=== PATIENT | female | born 1975 | race African-American/Black ===

== ENCOUNTER 2022-10-19 07:26 | Emergency (ER) | payer OTHER ==
[2022-10-19] MEDS ORDERED: DROPERIDOL 5 MG/2 ML VIAL IVP STA (07:42)
[2022-10-19] MEDS ORDERED: SODIUM CHLORIDE 0.9% 1,000 ML IV STA (07:42)
--- NOTE | 2022-10-19 07:59 | ED Physician Documentation ---
History of Present Illness - Stated complaint Stated Complaint: ABD PX/VOMIT - Chief complaint Chief Complaint: Abd Pain - History obtained from History obtained from: Patient - Additonal information Additional information: The patient is brought to the emergency department by her for chief complaint of nausea, vomiting, and diarrhea that started around midnight last night. The patient states that she went to bed feeling fine and has not had any specific sick contacts that she knows of. She states that she awoke from sleep feeling nauseated and ended up going to the bathroom and vomiting a number of times. She states that after that, she began having watery diarrhea which occurred multiple times. She states by the 5th or 6 time, she began to notice some blood tingeing of the diarrhea as well, and also, noticed some blood-tinged mucus when she wiped herself. The patient states that every time she stands up, she feels dizzy and gets cramps. Nobody else who has eaten the same food as her is sick. She states she works from home most of the time but did go to [employer] yesterday and was at the vet earlier this week. She denies any respiratory symptoms. She has had some chills but no measured fevers. She states she is otherwise fairly healthy. PD PAST MEDICAL HISTORY - Present Medications Home Medications: Ambulatory Orders Medication Instructions Recorded Confirmed Cetirizine [ZyrTEC] 10 mg PO DAILY 10/19/22 10/19/22 HYDROcod/ACETAM 5/325 [[place] 5/325] 1 - 2 tablet PO Q6H PRN #10 tablet 10/19/22 Ondansetron Odt [Zofran] 4 mg TL Q6H PRN #20 tablet 10/19/22 - Allergies Allergies/Adverse Reactions: Allergies Allergy/AdvReac Type Severity Reaction Status Date / Time Latex, Natural Rubber Allergy Hives Verified 10/19/22 07:33 PD ED PE NORMAL - Vitals Vital signs reviewed: Yes - General General: Alert and oriented X 3, No acute distress, Well developed/nourished, Other (The patient appears to feel uncomfortable, but is otherwise in no apparent distress.) - HEENT HEENT: Atraumatic, PERRL, EOMI, Moist mucous membranes - Neck Neck: Supple, no meningeal sign - Cardiac Cardiac: RRR, No murmur, Strong equal pulses - Respiratory Respiratory: No respiratory distress, Clear bilaterally - Abdomen Abdomen: Soft, Non distended, Other (Mild diffuse tenderness, no rebound or guarding. No focal tenderness that is more pronounced.) - Derm Derm: Normal color, Warm and dry, No rash - Extremities Extremities: No deformity, No edema - Neuro Neuro: Other (Alert, appropriate, grossly intact.) - Psych Psych: Normal mood, Normal affect Results - Vitals Vitals: Oxygen O2 Source Room air - Labs Labs: Laboratory Tests 10/19/22 10/19/22 10/19/22 08:01 08:01 08:01 WBC 11.3 H RBC 4.51 Hgb 14.0 Hct 41.5 MCV 92.0 MCH 31.0 MCHC 33.7 RDW 12.1 Plt Count 339 MPV 8.7 Neut # (Auto) 9.5 H Lymph # (Auto) 1.2 L [place] # (Auto) 0.6 Eos # (Auto) 0.0 Baso # (Auto) 0.0 Absolute Nucleated RBC 0.00 Nucleated RBC % 0.0 Sodium 139 Potassium 3.8 Chloride 98 L Carbon Dioxide 26 Anion Gap 15.0 H BUN 16 Creatinine 0.8 Estimated GFR (MDRD) 92 Glucose 173 H Calcium 8.8 Total Bilirubin 0.4 AST 20 ALT 20 Alkaline Phosphatase 50 Total Protein 8.1 Albumin 4.2 Globulin 3.9 Albumin/Globulin Ratio 1.1 Lipase 44 Serum HCG, Qual NEGATIVE Urine Color Urine Clarity Urine pH Ur Specific [place] Urine Protein Urine Glucose (UA) Urine Ketones Urine Occult Blood Urine Nitrite Urine Bilirubin Urine Urobilinogen Ur Leukocyte Esterase Ur Microscopic Review Urine Culture Comments 10/19/22 08:58 WBC RBC Hgb Hct MCV MCH MCHC RDW Plt Count MPV Neut # (Auto) Lymph # (Auto) [place] # (Auto) Eos # (Auto) Baso # (Auto) Absolute Nucleated RBC Nucleated RBC % Sodium Potassium Chloride Carbon Dioxide Anion Gap BUN Creatinine Estimated GFR (MDRD) Glucose Calcium Total Bilirubin AST ALT Alkaline Phosphatase Total Protein Albumin Globulin Albumin/Globulin Ratio Lipase Serum HCG, Qual Urine Color YELLOW Urine Clarity CLEAR Urine pH 7.0 Ur Specific [place] 1.015 Urine Protein NEGATIVE Urine Glucose (UA) NEGATIVE Urine Ketones NEGATIVE Urine Occult Blood NEGATIVE Urine Nitrite NEGATIVE Urine Bilirubin NEGATIVE Urine Urobilinogen 0.2 (NORMAL) Ur Leukocyte Esterase NEGATIVE Ur Microscopic Review NOT INDICATED Urine Culture Comments NOT INDICATED PD Medical Decision Making - ED course Complexity details: reviewed results, re-evaluated patient, considered differential, d/w patient, d/w family ED course: The patient was treated symptomatically with IV fluids and droperidol, and was worked up with laboratory studies including CBC, ER abdominal panel, test, and UA. I did offer to do a stool culture if the patient can produce a stool sample, though I suspect that she most likely has a viral illness. The p atient was feeling quite a bit better after IV fluids and nausea meds. Her laboratory studies, including CBC, were unremarkable. The patient had not had a concerning amount of bloody output and I discussed with her that most likely, the blood in her stool will resolve when the diarrhea resolves. The patient was not able to produce a stool sample in the emergency department and she did not have any further episodes of diarrhea. We have discussed symptomatic management at home, the expected duration of illness, and the usual indications for follow-up and return. Departure - Departure Disposition: Home, Self Care Clinical Impression: Gastroenteritis Condition: Stable Instructions: ED Gastroenteritis Viral Prescriptions: HYDROcod/ACETAM 5/325 [[place] 5/325] 1 - 2 tablet PO Q6H PRN #10 tablet PRN Reason: Pain Ondansetron Odt [Zofran] 4 mg TL Q6H PRN #20 tablet PRN Reason: Nausea / Vomiting Comments: Overall, your labs look fairly good, and you most likely have one of the viral illnesses that are going around and causing similar symptoms throughout members of the community. Your blood sugar was noted to be elevated at 175, and this should be followed up with your primary doctor to be sure you are not in the early stages of diabetes. It is possible that the elevation is just from being sick and will come down as you get better. However, it is important to follow this up as earlier and better control your blood sugars can prevent many of the unfortunate complications of diabetes later in life. Prescriptions for medication for nausea and pain have been electronically transmitted to the [facility] pharmacy in [place]. You should pick these up and start the nausea medicine right away to be sure that your nausea does not get out of control again and keep you from being able to stay hydrated. Please get plenty of rest over the next couple days. In general, these illnesses last anywhere from a few days to a week. If you feel as though things are getting worse after the next few days, or if your abdominal pain becomes more focused and more severe, please seek medical reevaluation. Discharge Date/Time: 10/19/22 10:52
[2022-10-19 08:06] LABS: BASOPHILS % (AUTO) 0.4 %; EOSINOPHILS % (AUTO) 0.1 %; HCT - HEMATOCRIT 41.5 % (37.0-47.0); LYMPHOCYTES # (AUTO) 1.2 10^3/uL (1.5-3.5); LYMPHOCYTES % (AUTO) 10.4 %; MEAN CORPUSCULAR HGB CONC 33.7 g/dL (32.0-36.0); MEAN PLATELET VOLUME 8.7 fL (7.9-10.8); MONOCYTES # (AUTO) 0.6 10^3/uL (0.0-1.0); MONOCYTES % (AUTO) 5.2 %; NEUTROPHILS # (AUTO) 9.5 10^3/uL (1.5-6.6); NEUTROPHILS % (AUTO) 83.6 %; PLT - PLATELET COUNT 339 10^3/uL (130-450); RED BLOOD COUNT 4.51 10^6/uL (4.20-5.40); RED CELL DISTRIBUTION WIDTH 12.1 % (12.0-15.0); WHITE BLOOD COUNT 11.3 x10^3/uL (4.8-10.8)
[2022-10-19 08:19] LABS: ALBUMIN 4.2 g/dL (3.2-5.5); ALBUMIN/GLOBULIN RATIO 1.1 (1.0-2.2); BILIRUBIN,TOTAL 0.4 mg/dL (0.2-1.0); CALCIUM 8.8 mg/dL (8.5-10.3); CREATININE 0.8 mg/dL (0.4-1.0); POTASSIUM 3.8 mmol/L (3.5-5.0); TOTAL PROTEIN 8.1 g/dL (6.7-8.2)
[2022-10-19 08:35] LABS: HCG,QUALITATIVE BLOOD NEGATIVE
[2022-10-19 09:04] LABS: BILIRUBIN,URINE NEGATIVE (NEGATIVE); GLUCOSE, URINE (UA) NEGATIVE (NEGATIVE); KETONES,URINE (UA) NEGATIVE (NEGATIVE); LEUKOCYTE ESTERASE, URINE NEGATIVE (NEGATIVE); NITRITE,URINE NEGATIVE (NEGATIVE); OCCULT BLOOD,URINE NEGATIVE (NEGATIVE); PROTEIN,URINE NEGATIVE (NEGATIVE); UROBILINOGEN,URINE 0.2 (NORMAL) E.U./dL (NORMAL)
[2022-10-19 09:06] LABS: CLARITY,URINE CLEAR (CLEAR)
[2022-10-19] MEDS ORDERED: HYDROmorphone 1 MG/ML CARPUJECT IVP STA (09:22)
[2022-10-19 10:42] VITALS: BP 114/69
== END 2022-10-19 10:52 | disposition home or self-care (01) ==
LOC: ED 07:26
DX: K52.9 Noninfective gastroenteritis and colitis, unspecified (principal); R73.9 Hyperglycemia, unspecified
CPT/HCPCS: 36415; 80053; 81003; 83690; 84703; 85025; 96374; 96375; 99283; 99284; J1170; 81001; 87086